=== PATIENT | male | born 1970 | race Caucasian/White ===

== ENCOUNTER 2023-05-24 08:43 | Emergency (ER) | payer OTHER ==
[~2023-05-24] VITALS: Ht 182.9 cm; Wt 113.6 kg
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
[2023-05-24] MEDS ORDERED: ketorolac trometh. 30mg/ml inj. IM ONE (12:35)
[2023-05-24 12:44] VITALS: BP 171/116; PULSE 83; RESP 17; TEMP 97.3; O2SAT 98
--- NOTE | 2023-05-24 13:34 | NUR ---
I AGREE WITH WORKFORCE MANAGEMENT COORDINATOR'S GENERAL ASSESSMENT. PT IN STABLE CONDITION.
== END 2023-05-24 13:40 | disposition home or self-care (01) ==
LOC: ER 08:44
DX: S70.12XA Contusion of left thigh, initial encounter (principal); M25.561 Pain in right knee; R07.89 Other chest pain; M79.644 Pain in right finger(s); M25.552 Pain in left hip; M25.511 Pain in right shoulder; M25.512 Pain in left shoulder; V89.2XXA Person injured in unspecified motor-vehicle accident, traffic, initial encounter; Y93.89 Activity, other specified; Y92.89 Other specified places as the place of occurrence of the external cause; Y99.8 Other external cause status
CPT/HCPCS: 71045; 72100; 72170; 73130; 73560; 96372; 99284; J1885

== ENCOUNTER 2023-09-15 13:30 | Emergency (ER) | payer OTHER ==
[~2023-09-15] VITALS: Ht 185.4 cm; Wt 113.6 kg
[2023-09-15 14:15] VITALS: BP 136/88; PULSE 77; TEMP 98.1; O2SAT 98
[2023-09-15] MEDS ORDERED: ketorolac trometh inj. 60 MG/2 ML VIAL IM ONE (14:20)
[2023-09-15] MEDS ORDERED: AMOX-580 PO (15:23)
[2023-09-15 16:53] VITALS: RESP 16
== END 2023-09-15 18:55 | disposition home or self-care (01) ==
LOC: ER 13:31
DX: K04.7 Periapical abscess without sinus (principal); Z79.2 Long term (current) use of antibiotics
CPT/HCPCS: 73502; 96372; 99283; J1885

== ENCOUNTER 2024-01-29 14:04 | Emergency (ER) | payer OTHER, MEDICAID ==
[~2024-01-29] VITALS: Ht 182.9 cm; Wt 116.1 kg
[2024-01-29] MEDS: ketorolac tromethamine 15mg/ml inj. IM ONE (15:16)
[2024-01-29 15:40] VITALS: BP 136/71; PULSE 60; TEMP 98.5; O2SAT 97
[2024-01-29 15:52] VITALS: RESP 16
== END 2024-01-29 15:53 | disposition home or self-care (01) ==
LOC: ER 14:04
DX: M54.50 Low back pain, unspecified (principal)
CPT/HCPCS: 96372; 99283; J1885

== ENCOUNTER 2024-04-22 06:53 | Emergency (ER) | payer MEDICAID, OTHER ==
[~2024-04-22] VITALS: Ht 182.9 cm; Wt 111.4 kg
[~2024-04-22 06:53] MED LIST: ACET-1008 PO; OMEP20CA15 PO; ONDA-243 PO; SENN-362 PO
[2024-04-22 09:45] VITALS: BP 132/91; PULSE 88; RESP 15; TEMP 98.1; O2SAT 99
[2024-04-22] MEDS ORDERED: HYDR-3686 PO (09:59)
[2024-04-22] MEDS ORDERED: KEN0.1O TOP (09:59)
[2024-04-22] MEDS: hydrOXYzine 25 MG tablet PO ONE (10:05)
[2024-04-22] MEDS: triamcinolone acetonide 40mg/ml inj IM ONE (10:05)
== END 2024-04-22 10:35 | disposition home or self-care (01) ==
LOC: ER 06:54
DX: L23.9 Allergic contact dermatitis, unspecified cause (principal); Z79.899 Other long term (current) drug therapy
CPT/HCPCS: 96372; 99283; J3301; Q0177

== ENCOUNTER 2024-07-16 14:01 | Emergency (ER) | payer MEDICAID ==
[~2024-07-16] VITALS: Ht 182.9 cm; Wt 110.0 kg
[~2024-07-16 14:01] MED LIST changes: +HYDR-3686 PO
[2024-07-16 14:15] VITALS: BP 134/81; PULSE 75; RESP 16; O2SAT 98
[2024-07-16] MEDS: famotidine 20mg tablet PO ONE (15:44)
[2024-07-16] MEDS: hydrOXYzine 25 MG tablet PO ONE (15:44)
[2024-07-16] MEDS ORDERED: TRIA15CR61 TOP (16:11)
[2024-07-16 16:29] VITALS: TEMP 97.9
== END 2024-07-16 16:30 | disposition home or self-care (01) ==
LOC: ER 14:01
DX: L20.9 Atopic dermatitis, unspecified (principal); Z79.899 Other long term (current) drug therapy
CPT/HCPCS: 99283; Q0177

== ENCOUNTER 2024-08-19 10:56 | Emergency (ER) | payer MEDICAID ==
[~2024-08-19] VITALS: Ht 182.9 cm; Wt 92.9 kg
[2024-08-19 11:09] VITALS: BP 168/88; PULSE 110; RESP 16; O2SAT 96
[2024-08-19] MEDS: triamcinolone acetonide 40mg/ml inj IM ONE (12:34)
[2024-08-19 12:55] VITALS: TEMP 98.2
== END 2024-08-19 12:57 | disposition home or self-care (01) ==
LOC: ER 10:56
DX: L20.9 Atopic dermatitis, unspecified (principal); Z88.5 Allergy status to narcotic agent; Z88.6 Allergy status to analgesic agent
CPT/HCPCS: 96372; 99283; J3301

== ENCOUNTER 2024-09-15 09:32 | Inpatient (IN) | payer OTHER ==
[2024-09-02 14:41] LABS: BASOPHILS # (AUTO) 0.1 X10'3 (0-0.2); BASOPHILS % (AUTO) 0.9 % (0-1); EOSINOPHILS # (AUTO) 0.2 X10'3 (0-0.9); EOSINOPHILS % (AUTO) 2.6 % (0-6); LYMPHOCYTES # (AUTO) 2.3 X10'3 (1.1-4.8); LYMPHOCYTES % (AUTO) 24.9 % (21-51); MEAN CORPUSCULAR HEMOGLOBIN 31.2 PG (27.0-31.0); MEAN CORPUSCULAR HGB CONC 35.3 g/dL (33.0-36.5); MEAN CORPUSCULAR VOLUME 88.4 FL (78-98); MEAN PLATELET VOLUME 7.8 FL (7.4-10.4); MONOCYTES # (AUTO) 0.8 X10'3 (0-0.9); MONOCYTES % (AUTO) 8.7 % (2-12); NEUTROPHILS # (AUTO) 5.9 X10'3 (1.8-7.7); NEUTROPHILS % (AUTO) 62.9 % (42-75); PRE OP HEMATOCRIT 40.1 % (42.0-52.0); PRE OP HEMOGLOBIN 14.2 g/dL (14.0-17.9); PRE OP PLATELET COUNT 351 X10'3 (140-440); PRE OP WHITE BLOOD COUNT 9.3 10'3 (4.8-10.8); RED BLOOD COUNT 4.53 X10'6 (4.70-6.10); RED CELL DISTRIBUTION WIDTH 13.7 % (11.5-14.5)
[2024-09-02 15:09] LABS: ALBUMIN 3.6 G/DL (3.4-5.0); ALBUMIN/GLOBULIN RATIO 1.2 (1.1-1.5); ALKALINE PHOSPHATASE 81 IU/L (46-116); BLOOD UREA NITROGEN 10 MG/DL (7-18); BUN/CREATININE RATIO 15.2 (10.0-20.0); CALCIUM 8.2 MG/DL (8.5-10.1); CHLORIDE 105 MMOL/L (99-107); CREATININE 0.66 MG/DL (0.60-1.10); PRE OP ALT 23 U/L (30-65); PRE OP ANION GAP 8 (8-16); PRE OP AST 12 U/L (10-37); PRE OP BILIRUB, TOTAL 0.6 MG/DL (0.0-1.0); PRE OP GLUCOSE 81 MG/DL (70-104); PRE OP SODIUM 141 MMOL/L (135-145); TOTAL CARBON DIOXIDE 28.4 MMOL/L (24-32); TOTAL PROTEIN 6.7 G/DL (6.4-8.2); eGFR > 90 ML/MIN
[2024-09-15] VITALS (17 sets, daily range): BP systolic 99–151; BP diastolic 57–103; PULSE 51–77; RESP 10–17; TEMP 97.4–98; O2SAT 92–99
[~2024-09-15] VITALS: Ht 182.9 cm; Wt 114.3 kg
[2024-09-15] MEDS: tranexamic acid 1gm/0.7% sal. 100 ML IV ONE (05:30)
[2024-09-15] MEDS: ceFAZolin 2gm in dextrose, iso 50 ML IV ONE (05:30)
[~2024-09-15 09:32] MED LIST changes: -ACET-1008 PO; +FISH1CAP15 PO; -HYDR-3686 PO; +LANS15CA15 PO; -OMEP20CA15 PO; -ONDA-243 PO; -SENN-362 PO; +vancomycin 1,000mg inj ONE
[2024-09-15] MEDS: famotidine 20mg tablet PO ONE (10:30)
[2024-09-15] MEDS: ringers solution, lacted 1,000 ML IV SCH ×2 (10:31→18:54)
[2024-09-15] MEDS: VANCOMYCIN/H2O 1.5g/300mL PB 300 ML IV ONE (10:31)
[2024-09-15] MEDS ORDERED: vancomycin 1,000mg inj ONE (10:57)
[2024-09-15] MEDS ORDERED: sevoflurane 250ml liquid IH ONE (12:18)
[2024-09-15] MEDS ORDERED: fentaNYL/PF 50MCG/1 ML 2ML syringe ONE (12:19)
[2024-09-15] MEDS ORDERED: midazolam 1 mg/ML 2ml injection ONE (12:21)
[2024-09-15] MEDS ORDERED: labetalol 20mg/4ml (5mg/ml) syringe IV PRN (12:25)
[2024-09-15] MEDS ORDERED: meperidine/PF 25mg/ml syringe IV PRN ×2 (12:25)
[2024-09-15] MEDS ORDERED: ROPIVAcaine 0.2% (10 MG/5 ML) BOLUS INJECTION INTERSCALE PRN (12:25)
[2024-09-15] MEDS ORDERED: proCHLORperazine 10 MG/2 ml inj IV PRN (12:25)
[2024-09-15] MEDS ORDERED: hydrALAZINE 20mg/ml inj. IV PRN (12:25)
[2024-09-15] MEDS ORDERED: morphine 4 MG/ML inj SYRINge IV PRN (12:25)
[2024-09-15] MEDS ORDERED: LIDOcaine 2% (20mg/ml) 5ml vial ONE (13:18)
[2024-09-15] MEDS ORDERED: rocuronium 10mg/ml inj IV ONE (13:18)
[2024-09-15] MEDS ORDERED: dexamethasone sod phosphate 4mg/ml inj. ONE (13:18)
[2024-09-15] MEDS ORDERED: LIDOcaine 1%/PF 5ML 10 MG/ML VIAL ONE (13:18)
[2024-09-15] MEDS ORDERED: ROPIVAcaine 0.5% (5mg/ml) 30ml vial ONE (13:18)
[2024-09-15] MEDS ORDERED: propofol inj 20 ML IV ONE ×2 (13:18→13:19)
[2024-09-15] MEDS ORDERED: fentaNYL /PF 50mcg/ml 5ml ampule ONE (13:19)
[2024-09-15] MEDS ORDERED: ondansetron/PF 4mg/2ml inj ONE (13:20)
[2024-09-15] MEDS ORDERED: neostigmine methylsulfate 1 MG/ML 10ml vial ONE (14:45)
[2024-09-15] MEDS ORDERED: glycopyrrolate 0.2mg/ml inj ONE (14:45)
[2024-09-15] MEDS: ROPIVAcaine 0.2%/PF PUMP/bolus 545 ML INTERSCALE SCH (15:12)
[2024-09-15] MEDS ORDERED: acetaminophen 325mg tablet PO PRN (15:20)
[2024-09-15] MEDS ORDERED: naloxone 0.4 mg/ml inj IV PRN (15:20)
[2024-09-15] MEDS ORDERED: diphenhydrAMINE 25mg capsule PO PRN ×2 (15:20)
[2024-09-15] MEDS ORDERED: magnesium hydroxide 30ml (MOM) UD suspension PO PRN (15:20)
[2024-09-15] MEDS ORDERED: ondansetron/PF 4mg/2ml inj IV PRN (15:20)
[2024-09-15] MEDS ORDERED: bisacodyl 10mg suppository rectal RC PRN (15:20)
[2024-09-15] MEDS ORDERED: HYDROmorphone inj. 0.5 MG/0.5 ML DISP.SYRIN IV PRN (15:20)
[2024-09-15] MEDS: acetaminophen 1,000mg/100ml IV 100 ML IV PRN (15:33)
[2024-09-15] MEDS: meperidine/PF 25mg/ml syringe IV PRN (15:37)
[2024-09-15] MEDS: ondansetron/PF 4mg/2ml inj IV PRN (15:45)
[2024-09-15] MEDS: morphine 2 MG/ML inj. syringe IV PRN (15:50)
[2024-09-15] MEDS ORDERED: ceFAZolin/D5W- 1GM premix 50 ML IV SCH (16:00)
[2024-09-15] MEDS: potassium Cl 20mEq in NS 1,000 ML IV SCH (17:11)
[2024-09-15] MEDS: tranexamic acid inj. 1,100 MG in normal saline 100ml IV soln 89 ML IV ONE (19:23)
[2024-09-15] MEDS: ceFAZolin/D5W- 1GM premix 50 ML IV SCH (21:02)
[2024-09-15] MEDS: gabapentin 300mg capsule PO SCH (21:02)
[2024-09-15] MEDS: sennosides 8.6mg tablet PO SCH (21:02)
[2024-09-15] MEDS: acetaminophen 325mg tablet PO SCH (21:02)
[2024-09-15] MEDS: VANCOMYCIN 1GM 200ML H20 (PEG) 200 ML IV SCH (23:34)
[2024-09-16 02:00] VITALS: BP 108/64; PULSE 60; RESP 14; TEMP 98.5; O2SAT 96
[2024-09-16] MEDS: oxyCODONE IR 5mg (immed. release) tablet PO PRN ×2 (05:11→19:12)
[2024-09-16 06:00] VITALS: BP 109/61; PULSE 64; RESP 13; TEMP 97.6; O2SAT 96
[2024-09-16] MEDS: aspirin 325mg tablet PO SCH (09:01)
[2024-09-16 10:00] VITALS: BP 131/65; PULSE 51; RESP 14; TEMP 98.1; O2SAT 97
[2024-09-16] MEDS: cephalexin 250mg capsule PO ONE (13:53)
[2024-09-16] MEDS: HYDROmorphone 1 mg/ml syringe IV PRN (13:53)
[2024-09-16 18:00] VITALS: BP 131/80; PULSE 78; RESP 22; TEMP 97.4; O2SAT 98
[2024-09-16] MEDS: celeCOXIB 100mg capsule PO SCH (21:34)
[2024-09-16 22:00] VITALS: BP 148/89; PULSE 89; RESP 14; TEMP 97.7; O2SAT 96
[2024-09-17] VITALS (24 sets, daily range): BP systolic 105–162; BP diastolic 59–90; PULSE 75–96; RESP 12–19; TEMP 97.7–98.8; O2SAT 95–99
[2024-09-17 11:08] LABS: BASOPHILS # (AUTO) 0.1 X10'3 (0-0.2); BASOPHILS % (AUTO) 0.7 % (0-1); EOSINOPHILS % (AUTO) 0.3 % (0-6); LYMPHOCYTES # (AUTO) 1.4 X10'3 (1.1-4.8); LYMPHOCYTES % (AUTO) 13.1 % (21-51); MEAN CORPUSCULAR HEMOGLOBIN 31.1 PG (27.0-31.0); MEAN CORPUSCULAR HGB CONC 34.6 g/dL (33.0-36.5); MEAN CORPUSCULAR VOLUME 89.7 FL (78-98); MEAN PLATELET VOLUME 8.6 FL (7.4-10.4); MONOCYTES # (AUTO) 1.4 X10'3 (0-0.9); MONOCYTES % (AUTO) 13.2 % (2-12); NEUTROPHILS # (AUTO) 7.5 X10'3 (1.8-7.7); NEUTROPHILS % (AUTO) 72.7 % (42-75); PRE OP HEMATOCRIT 31.7 % (42.0-52.0); PRE OP PLATELET COUNT 276 X10'3 (140-440); PRE OP WHITE BLOOD COUNT 10.3 10'3 (4.8-10.8); RED BLOOD COUNT 3.54 X10'6 (4.70-6.10); RED CELL DISTRIBUTION WIDTH 13.4 % (11.5-14.5)
[2024-09-17 11:27] LABS: ALBUMIN 2.9 G/DL (3.4-5.0); ALBUMIN/GLOBULIN RATIO 0.9 (1.1-1.5); ALKALINE PHOSPHATASE 61 IU/L (46-116); BLOOD UREA NITROGEN 10 MG/DL (7-18); BUN/CREATININE RATIO 22.2 (10.0-20.0); CALCIUM 7.9 MG/DL (8.5-10.1); CHLORIDE 105 MMOL/L (99-107); CREATININE 0.45 MG/DL (0.60-1.10); PRE OP ALT 21 U/L (30-65); PRE OP ANION GAP 5 (8-16); PRE OP AST 12 U/L (10-37); PRE OP BILIRUB, TOTAL 1.3 MG/DL (0.0-1.0); PRE OP GLUCOSE 103 MG/DL (70-104); PRE OP POTASSIUM 3.6 MMOL/L (3.4-5.1); PRE OP SODIUM 136 MMOL/L (135-145); TOTAL CARBON DIOXIDE 26.5 MMOL/L (24-32); TOTAL PROTEIN 6.1 G/DL (6.4-8.2); eCRCL 201 ML/MIN; eGFR > 90 ML/MIN
[2024-09-17] MEDS ORDERED: vancomycin 1,000mg inj ONE (14:17)
[2024-09-17] MEDS ORDERED: ceFAZolin/D5W- 1GM premix 50 ML IV SCH (15:00)
[2024-09-17] MEDS: vancomycin/NS 1 GM ADD-VANTAGE 250 ML IV ONE (15:17)
[2024-09-17] MEDS ORDERED: morphine 4 MG/ML inj SYRINge IV PRN (15:25)
[2024-09-17] MEDS ORDERED: morphine 2 MG/ML inj. syringe IV PRN (15:25)
[2024-09-17] MEDS ORDERED: ondansetron/PF 4mg/2ml inj IV PRN (15:25)
[2024-09-17] MEDS ORDERED: meperidine/PF 25mg/ml syringe IV PRN ×2 (15:25)
[2024-09-17] MEDS: ringers solution, lacted 1,000 ML IV SCH (15:25)
[2024-09-17] MEDS ORDERED: proCHLORperazine 10 MG/2 ml inj IV PRN (15:25)
[2024-09-17] MEDS ORDERED: fentaNYL/PF 50MCG/1 ML 2ML syringe ONE ×2 (15:30→16:51)
[2024-09-17] MEDS ORDERED: midazolam 1 mg/ML 2ml injection ONE (15:30)
[2024-09-17] MEDS ORDERED: sevoflurane 250ml liquid IH ONE (15:42)
[2024-09-17] MEDS ORDERED: bacitracin 15gm ointment TP ONE (16:40)
[2024-09-17] MEDS ORDERED: propofol inj 20 ML IV ONE (16:51)
[2024-09-17] MEDS: meperidine/PF 25mg/ml syringe IV PRN (18:21)
[2024-09-18 02:00] VITALS: BP 107/66; PULSE 75; RESP 18; TEMP 97.9; O2SAT 97
[2024-09-18 06:00] VITALS: BP 122/71; PULSE 83; RESP 18; TEMP 98.4; O2SAT 97
== END 2024-09-18 14:50 | disposition home or self-care (01) | DRG 483 ==
LOC: PAS IN 09:50 → ORTHO 4S 15:59
PROVIDERS: ADMIT Orthopaedic Surgery; ATTEND Orthopaedic Surgery
PROC: 0RRK00Z Replacement of Left Shoulder Joint with Reverse Ball and Socket Synthetic Substitute, Open Approach (ICD-10-PCS; principal; 2024-09-15 12:18)
PROC: 0JCF0ZZ Extirpation of Matter from Left Upper Arm Subcutaneous Tissue and Fascia, Open Approach (ICD-10-PCS; 2024-09-17)
DX: M19.012 Primary osteoarthritis, left shoulder (principal); M75.102 Unspecified rotator cuff tear or rupture of left shoulder, not specified as traumatic; S40.012A Contusion of left shoulder, initial encounter; X58.XXXA Exposure to other specified factors, initial encounter; Y93.89 Activity, other specified; Y92.89 Other specified places as the place of occurrence of the external cause; Y99.8 Other external cause status
CPT/HCPCS: Z7506; Z7508; 36415; 73020; 80053; 82948; 85025; 87081; 93005; 97110; 97116; 97161; A4565; A4615; A4618; A6253; A6258; A6449; A7000; C1776; C9250; G0378; J0131; J0690; J0735; J1100; J1171; J2003; J2175; J2250; J2270; J2405; J2704; J2710; J2795; J3010; J3370; J3372; J3480; J3490; J7040; J7120